=== PATIENT | male | born 1965 | race Caucasian/White ===

== ENCOUNTER 2025-01-27 18:01 | Emergency (ER) | payer OTHER ==
[2025-01-27] MEDS ORDERED: Sodium Chloride 0.9% 10 ML Syringe FLUSH PRN (18:10)
[2025-01-27 18:21] LABS: BASOPHILS ABSOLUTE AUTO 0.01 K/uL (0.02-0.10); BASOPHILS PERCENT AUTO 0.1 % (0.0-0.5); EOSINOPHILS ABSOLUTE AUTO 0.07 K/uL (0.04-0.40); EOSINOPHILS PERCENT AUTO 1.0 % (1.0-5.0); LYMPHOCYTES ABSOLUTE AUTO 1.35 K/uL (1.50-4.00); LYMPHOCYTES PERCENT AUTO 18.4 % (20.0-40.0); MEAN PLATELET VOLUME 8.9 fL (6.0-10.0); MONOCYTES ABSOLUTE AUTO 0.76 K/uL (0.20-0.80); MONOCYTES PERCENT AUTO 10.4 % (3.0-10.0); NEUTROPHILS ABSOLUTE AUTO 5.15 K/uL (2.00-7.50); NEUTROPHILS PERCENT AUTO 70.1 % (45.0-70.0); PLATELET COUNT,PLT 235 K/uL (150-400); RED BLOOD CELL COUNT 5.13 M/uL (4.50-6.50); RED CELL DISTRIBUTION WIDTH 13.2 % (11.0-16.0); WHITE BLOOD CELL COUNT,WBC 7.3 K/uL (4.0-11.0)
[2025-01-27 18:39] LABS: A/G RATIO 1.1 (0.8-2.0); ALANINE AMINOTRANSFERASE,ALT 38 U/L (12-78); ASPARTATE AMNIOTRANSFERASE,AST 17 U/L (15-37); BILIRUBIN TOTAL 0.6 mg/dL (0.0-1.0); BLOOD UREA NITROGEN,BUN 14 mg/dL (8-26); CARBON DIOXIDE,CO2 25.6 mmol/L (21.0-32.0); CHLORIDE,CL 104 mmol/L (98-107); CREATININE 1.10 mg/dL (0.70-1.30); EST CRCL DRUG DOSING (CG) 68.44 mL/min; ESTIMATED GFR 78 mL/min (>60); GLUCOSE RANDOM 93 mg/dL (74-100); POTASSIUM,K 4.6 mmol/L (3.5-5.1); PROTEIN TOTAL,TP 7.4 g/dL (6.4-8.2); SODIUM,NA 137 mmol/L (136-145)
[2025-01-27 18:45] LABS: PRO B-TYPE NATRIUR PEPT,BNPPRO 10.0 pg/mL (0-125)
[2025-01-27 18:46] LABS: TROPONIN I HIGH SENSITIVITY < 4.0 pg/ml (<=60.4)
[2025-01-27] MEDS: Iopamidol 755 Mg/ML 100 ML Bottle IV SCH (19:50)
[2025-01-27] MEDS: Sodium Chloride 0.9% 50 ML SDV FLUSH ONE (19:50)
== END 2025-01-27 21:54 | disposition home or self-care (01) ==
LOC: LB.ED 18:01 → MERGE 18:01 → LB.ED 21:54
DX: R07.89 Other chest pain (principal); Z79.890 Hormone replacement therapy; Z79.899 Other long term (current) drug therapy
CPT/HCPCS: 36415; 71260; 80053; 83735; 83880; 84484; 85025; 85379; 93005; 99285; A9270; Q9967; 93010; 99283